=== PATIENT | male | born 1955 | race Caucasian/White ===

== ENCOUNTER 2024-08-22 21:52 | Emergency (ER) | payer MEDICARE ==
[~2024-08-22] VITALS: Ht 182.9 cm; Wt 97.5 kg
[2024-08-22 22:14] VITALS: TEMP 98.1
[2024-08-22] MEDS: KETOROLAC TROMETHAMINE 60 MG/2 ML VIAL IM ONE (22:32)
[2024-08-22 23:17] LABS: CLARITY,URINE CLOUDY (CLEAR); COLOR,URINE YELLOW (YELLOW); GLUCOSE, URINE NEGATIVE (NEGATIVE); KETONES,URINE NEGATIVE (NEGATIVE); LEUKOCYTE ESTERASE ,URINE NEGATIVE (NEGATIVE); NITRITE,URINE NEGATIVE (NEGATIVE); PH,URINE 5.5 (5 - 7); PROTEIN,URINE DIPSTICK 1+ (NEGATIVE); URINE UROBILINOGEN 0.2 mg/dL (0.2 - 1)
[2024-08-22 23:18] LABS: BILIRUBIN,URINE NEGATIVE (NEGATIVE)
[2024-08-22 23:24] LABS: BACTERIA,URINE MODERATE /HPF; EPITHELIAL CELLS,URINE FEW /LPF; WBC,URINE (MAN) 0-5 /HPF (0-5)
[2024-08-22 23:25] LABS: SPERM,URINE PRESENT
[2024-08-23 00:15] VITALS: PULSE 62; RESP 17
[2024-08-23] MEDS ORDERED: FLOMAX0.4 MG PO (00:15)
[2024-08-23] MEDS ORDERED: CEFDINIR300 MG PO (00:15)
[2024-08-23] MEDS ORDERED: ONDANSETRON ODT4 MG SL (00:15)
[2024-08-23] MEDS ORDERED: KETOROLAC TROME10 MG PO (00:15)
[2024-08-23 01:09] VITALS: BP 163/93; O2SAT 96
== END 2024-08-23 00:25 | disposition home or self-care (01) ==
LOC: ER 21:55
DX: N50.812 Left testicular pain (principal); N13.2 Hydronephrosis with renal and ureteral calculous obstruction; R10.30 Lower abdominal pain, unspecified; K57.90 Diverticulosis of intestine, part unspecified, without perforation or abscess without bleeding; K40.90 Unilateral inguinal hernia, without obstruction or gangrene, not specified as recurrent; I10 Essential (primary) hypertension; E78.5 Hyperlipidemia, unspecified; Z95.810 Presence of automatic (implantable) cardiac defibrillator; Z95.5 Presence of coronary angioplasty implant and graft
CPT/HCPCS: 74176; 76870; 81001; 93976; 99284; J1885